=== PATIENT | female | born 1985 | race Caucasian/White ===

== ENCOUNTER 2020-11-18 20:22 | Emergency (ER) | payer BC ==
[~2020-11-18 20:22] MED LIST: ZOFRAN ODT4 MG PO
[2020-11-18 22:10] LABS: HEMOGLOBIN 13.9 gm/dl (12.3-15.3); RED BLOOD COUNT 4.91 M/UL (4.00-5.10); WHITE BLOOD COUNT 18.3 K/UL (4.5-11.0)
[2020-11-18 22:28] LABS: BUN/CREATININE RATIO 22 (0-10)
[2020-11-19] MEDS ORDERED: ZOFRAN ODT 4 MG4 MG PO (00:52)
[2020-11-19] MEDS ORDERED: CIPRO500 MG PO (00:52)
[2020-11-19] MEDS ORDERED: PERCOCET 5-3251 EACH PO (00:52)
== END 2020-11-19 01:06 | disposition home or self-care (01) ==
LOC: ER1 20:22
PROVIDERS: Physician Assistant
DX: N13.2 Hydronephrosis with renal and ureteral calculous obstruction (principal); D72.829 Elevated white blood cell count, unspecified; F17.210 Nicotine dependence, cigarettes, uncomplicated; Z90.49 Acquired absence of other specified parts of digestive tract
CPT/HCPCS: 80053; 81001; 83690; 84703; 85025; 96372; 99284